=== PATIENT | female | born 1955 | race Caucasian/White ===

== ENCOUNTER 2018-07-11 12:43 | Emergency (ER) | payer OTHER ==
[~2018-07-11] VITALS: Ht 162.6 cm; Wt 87.0 kg
[2018-07-11] MEDS ORDERED: KETOROLAC 30 MG/1 ML IVPush ONE (14:00)
[2018-07-11] MEDS ORDERED: KETOROLAC 30 MG/1 ML ONE (14:03)
[2018-07-11] MEDS ORDERED: PLEASE ENTER ALLERGIES MC SCH (14:30)
[2018-07-11 15:18] VITALS: BP 138/81
== END 2018-07-11 15:20 | disposition home or self-care (01) ==
LOC: ED 14:46
DX: S43.122A Dislocation of left acromioclavicular joint, 100%-200% displacement, initial encounter (principal); S50.02XA Contusion of left elbow, initial encounter; S70.02XA Contusion of left hip, initial encounter; Z96.642 Presence of left artificial hip joint; W01.0XXA Fall on same level from slipping, tripping and stumbling without subsequent striking against object, initial encounter; Y93.89 Activity, other specified; Y99.8 Other external cause status; Y92.009 Unspecified place in unspecified non-institutional (private) residence as the place of occurrence of the external cause
CPT/HCPCS: 73030; 73080; 73502; 96374; 99284; J1885